=== PATIENT | male | born 1970 | race African-American/Black ===

== ENCOUNTER 2016-03-31 00:55 | Inpatient (IN) | payer MEDICAID, OTHER ==
[2016-03-31] VITALS (11 sets, daily range): BP systolic 113–160; BP diastolic 54–89; PULSE 59–85; RESP 16–20; TEMP 96.2–99; O2SAT 93–98
[~2016-03-31] VITALS: Ht 182.9 cm; Wt 85.0 kg
[~2016-03-31 00:55] MED LIST: IBUP400T20 PO; Z.0.NO CURRENT MEDS
--- NOTE | 2016-03-31 01:29 | PD ---
HPI Chief Complaint: Chest Pain Time Seen by Provider: 01:09 Travel History International Travel<30 days: No Contact w/Intl Traveler<30days: No Traveled to known affect area: No History of Present Illness HPI 48-year-old male arrives following about 12 hours of chest pain which started after he is not diabetic. He spent most of the day lying around and relaxing. 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 About 3 hours prior to ER arrival the pain became quite a bit worse. The location is retrosternal and epigastric. EMS was activated and the patient received nitroglycerin sublingual as well as a baby aspirin. In the ER he states his pain is a 7/10. It's worse was 10 over 10. Quality pressure. No radiation to the arm neck etc. He denies any family history of early onset coronary artery disease. He has no personal history of diabetes hypertension or hyperlipidemia. He does smoke. The pain is worse with inspiration. His notes diaphoresis at home. About 1 hour prior to ER arrival the patient took a Lortab and Flexeril which has not helped much. [facility] Past Medical History Medical History: Denies Significant Hx Diminished Hearing: No Social History Alcohol Use: Yes (DAILY 1-2 DRINKS) Tobacco Use: Yes (1 PPD) Substance Use: No Allergies-Medications (Allergen,Severity, Reaction): Coded Allergies: No Known Allergies (Verified , 03/31/16) Reported Meds & Prescriptions Reported Meds & Active Scripts Active No Active Prescriptions or Reported Medications Review of Systems Except as stated in HPI: all other systems reviewed are Neg Physical Exam Narrative GENERAL: 45-year-old male well-nourished well-developed SKIN: Warm and dry. HEAD: Atraumatic. Normocephalic. EYES: Pupils equal and round. No scleral icterus. No injection or drainage. ENT: No nasal bleeding or discharge. Mucous membranes pink and moist. NECK: Trachea midline. No JVD. CARDIOVASCULAR: Regular rate and rhythm. No murmur appreciated. RESPIRATORY: No accessory muscle use. Clear to auscultation. Breath sounds equal bilaterally. GASTROINTESTINAL: Abdomen soft, non-tender, nondistended. Hepatic and splenic margins not palpable. MUSCULOSKELETAL: No obvious deformities. No clubbing. No cyanosis. No edema. NEUROLOGICAL: Awake and alert. No obvious cranial nerve deficits. Motor grossly within normal limits. Normal speech. PSYCHIATRIC: Appropriate mood and affect; insight and judgment normal. Data Data Last Documented VS Vital Signs Date Time Temp Pulse Resp B/P Pulse Ox O2 Delivery O2 Flow Rate FiO2 03/31/16 01:09 65 18 93 Room Air 03/31/16 01:04 97.5 142/89 Orders Electrocardiogram (03/31/16 01:20) Ckmb (Isoenzyme) Profile (03/31/16 01:20) Complete Blood Count With Diff (03/31/16 01:20) Comprehensive Metabolic Panel (03/31/16 01:20) Magnesium (Mg) (03/31/16 01:20) Prothrombin Time / Inr (Pt) (03/31/16 01:20) Act Partial Throm Time (Ptt) (03/31/16 01:20) Troponin I (03/31/16 01:20) Lipase (03/31/16 01:20) Chest, Single Ap (03/31/16 01:20) Ecg Monitoring (03/31/16 01:20) Iv Access Insert/Monitor (03/31/16 01:20) Oximetry (03/31/16 01:20) Oxygen Administration (03/31/16 01:20) Sodium Chloride 0.9% Flush (Ns Flush) (03/31/16 01:30) Lactic Acid (03/31/16 01:20) Blood Culture (03/31/16 01:20) Morphine Inj (Morphine Inj) (03/31/16 01:30) Nitroglycerin 2% Oint (Nitroglycerin 2% (03/31/16 01:30) CKMB (03/31/16 01:20) CKMB% (03/31/16 01:20) Ceftriaxone Inj (Rocephin Inj) (03/31/16 02:45) Azithromycin Inj (Zithromax Inj) (03/31/16 02:45) B-Type Natriuretic Peptide (03/31/16 03:09) Ct Thorax/ Chest Wo Iv Contras (03/31/16 ) Place In Observation (03/31/16 ) Vital Signs (Adult) Q4H (03/31/16 03:09) Activity Oob With Assistance (03/31/16 03:09) Pencil Inspector / Telemetry .CONTINUOUS (03/31/16 03:09) Diet Heart Healthy (03/31/16 Breakfast) Sodium Chloride 0.9% Flush (Ns Flush) (03/31/16 03:15) Sodium Chloride 0.9% Flush (Ns Flush) (03/31/16 09:00) Basic Metabolic Panel (Bmp) (04/01/16 06:00) Complete Blood Count With Diff (04/01/16 06:00) Creatine Kinase (Cpk) (03/31/16 07:21) Creatine Kinase (Cpk) (03/31/16 13:21) Troponin I (03/31/16 07:20) Troponin I (03/31/16 13:20) Enoxaparin Inj (Lovenox Inj) (03/31/16 09:00) Naloxone Inj (Narcan Inj) (03/31/16 03:15) Admit Order (Ed Use Only) (03/31/16 03:10) Labs Laboratory Tests Test 03/31/16 01:20 White Blood Count 13.5 TH/MM3 Red Blood Count 4.51 MIL/MM3 Hemoglobin 13.6 GM/DL Hematocrit 39.6 % Mean Corpuscular Volume 87.8 FL Mean Corpuscular Hemoglobin 30.2 PG Mean Corpuscular Hemoglobin 34.4 % Concent Red Cell Distribution Width 15.1 % Platelet Count 224 TH/MM3 Mean Platelet Volume 7.3 FL Neutrophils (%) (Auto) 53.7 % Lymphocytes (%) (Auto) 38.1 % Monocytes (%) (Auto) 6.8 % Eosinophils (%) (Auto) 0.9 % Basophils (%) (Auto) 0.5 % Neutrophils # (Auto) 7.2 TH/MM3 Lymphocytes # (Auto) 5.1 TH/MM3 Monocytes # (Auto) 0.9 TH/MM3 Eosinophils # (Auto) 0.1 TH/MM3 Basophils # (Auto) 0.1 TH/MM3 CBC Comment DIFF FINAL Differential Comment Prothrombin Time 10.7 SEC Prothromb Time International 1.0 RATIO Ratio Activated Partial 23.5 SEC Thromboplast Time Sodium Level 140 MEQ/L Potassium Level 3.6 MEQ/L Chloride Level 107 MEQ/L Carbon Dioxide Level 27.0 MEQ/L Anion Gap 6 MEQ/L Blood Urea Nitrogen 11 MG/DL Creatinine 1.19 MG/DL Estimat Glomerular Filtration 79 ML/MIN Rate Random Glucose 151 MG/DL Lactic Acid Level 2.2 mmol/L Calcium Level 7.8 MG/DL Magnesium Level 1.7 MG/DL Total Bilirubin 0.3 MG/DL Aspartate Amino Transf 12 U/L (AST/SGOT) Alanine Aminotransferase 13 U/L (ALT/SGPT) Alkaline Phosphatase 77 U/L Total Creatine Kinase 104 U/L Creatine Kinase MB LESS THAN 0.5 NG/ML Troponin I LESS THAN 0.02 NG/ML Total Protein 7.2 GM/DL Albumin 2.9 GM/DL Lipase 168 U/L [facility] Medical Decision Making Medical Screen Exam Complete: Yes Emergency Medical Condition: Yes Medical Record Reviewed: Yes Differential Diagnosis NSTEMI, unstable angina, coronary vasospasm, PE, PTX, aortic dissection, pericarditis, myocarditis, endocarditis, PNA, esophageal disease, aneurysm, musculoskeletal etiologies, anxiety, cocaine/sympathomimetic abuse Narrative Course Tn < 0.02 CBC & BMP Diagram 03/31/16 01:20 LA 2.2 LFTs normal Lipase 168 Tn < 0.02 EKG: sinus, rate 54, probable early repolarization ST elevations Last 24 hours Impressions Chest X-Ray 03/31/16 0120 Signed Impressions: Service Date/Time: March 01:30 - CONCLUSION: Bilateral, basilar predominant infiltrates suggesting pulmonary edema and/or pneumonia. Jair Hightower MD Admission for iv abx and monitoring. d/w Dr Segal Sepsis Criteria SIRS Criteria (2 or more): RR > 20 or PaCO2 < 32, WBC > 03772, < 4000 or > 10 % bands Diagnosis Primary Impression: PNA (pneumonia) Qualified Code: J18.9 - Pneumonia of both lungs due to infectious organism, unspecified part of lung Additional Impression: Chest pain Qualified Code: R07.9 - Chest pain, unspecified type Admitting Information Admitting Physician Requests: Observation Scripts No Active Prescriptions or Reported Meds Bassem Bermudez MD Mar 31, 2016 01:29
[2016-03-31] MEDS ORDERED: MORPHINE SULFATE 8 MG/ML INJ IV PUSH ONE (01:30)
[2016-03-31] MEDS ORDERED: NITROGLYCERIN 2% OINT 1 GM PACKET TOP ONE (01:30)
[2016-03-31] MEDS ORDERED: SODIUM CHLORIDE 0.9% FLUSH 5 ML FLUSH IVF PRN (01:30)
[2016-03-31 01:35] LABS: AUTOMATED NEUTROPHIL # 7.2 TH/MM3 (1.8-7.7); BASOPHIL # 0.1 TH/MM3 (0-0.2); BASOPHIL % 0.5 % (0.0-2.0); EOSINOPHIL # 0.1 TH/MM3 (0-0.4); EOSINOPHIL % 0.9 % (0.0-4.0); HEMATOCRIT 39.6 % (39.0-51.0); HEMO FLAGS DIFF FINAL; LYMPH % 38.1 % (9.0-44.0); LYMPHOCYTE # 5.1 TH/MM3 (1.0-4.8); MEAN CELL VOLUME 87.8 FL (80.0-100.0); MEAN CORPUSCULAR HEMOGLOBIN 30.2 PG (27.0-34.0); MEAN CORPUSCULAR HGB CONC 34.4 % (32.0-36.0); MONO % 6.8 % (0.0-8.0); NEUT % 53.7 % (16.0-70.0); PLATELET COUNT 224 TH/MM3 (150-450); RED BLOOD COUNT 4.51 MIL/MM3 (4.50-5.90); RED CELL DISTRIBUTION WIDTH 15.1 % (11.6-17.2); WHITE BLOOD COUNT 13.5 TH/MM3 (4.0-11.0)
[2016-03-31 01:43] LABS: APTT (PATIENT) 23.5 SEC (24.3-30.1); PROTHROMBIN TIME - PATIENT 10.7 SEC (9.8-11.6)
[2016-03-31 02:05] LABS: ALT (GPT) 13 U/L (12-78); ANION GAP 6 MEQ/L (5-15); AST (GOT) 12 U/L (15-37); BLOOD UREA NITROGEN 11 MG/DL (7-18); CHLORIDE 107 MEQ/L (98-107); GLOMERULAR FILTRATION RATE 79 ML/MIN (>89); MAGNESIUM 1.7 MG/DL (1.5-2.5); POTASSIUM 3.6 MEQ/L (3.5-5.1); SODIUM (NA) 140 MEQ/L (136-145)
[2016-03-31 02:09] LABS: ALKALINE PHOSPHATASE 77 U/L (45-117); CREATINE KINASE 104 U/L (39-308); TOTAL BILIRUBIN ADULT 0.3 MG/DL (0.2-1.0)
[2016-03-31 02:22] LABS: CKMB LESS THAN 0.5 NG/ML (0.5-3.6)
--- NOTE | 2016-03-31 02:39 | RADRPT ---
EXAM DATE/TIME: 03/31/2016 01:30 [facility] COMPARISON: No previous studies available for comparison. INDICATIONS : Shortness of breath. MEDICAL HISTORY : None. SURGICAL HISTORY : None. ENCOUNTER: Initial ACUITY: 1 day PAIN SCORE: 0/10 LOCATION: Bilateral chest FINDINGS: Mild basilar predominant and primarily interstitial opacities are seen of both lungs suggesting pulmo nary edema and/or atypical pneumonia. No effusion demonstrated. Heart size is normal. There is no pne umothorax. CONCLUSION: Bilateral, basilar predominant infiltrates suggesting pulmonary edema and/or pneumonia. Jair Hightower MD on March 31, 2016 at 2:36 Board Certified Radiologist. This report was verified electronically.
[2016-03-31] MEDS ORDERED: cefTRIAXone INJ 1,000 MG in SODIUM CHLORIDE 0.9% INJ 100 ML IV ONE (02:45)
[2016-03-31] MEDS ORDERED: AZITHROMYCIN INJ 500 MG in SODIUM CHLOR 0.9% 250 ML INJ 250 ML IV ONE (02:45)
[2016-03-31] MEDS ORDERED: SODIUM CHLORIDE 0.9% FLUSH 5 ML FLUSH FLUSH PRN (03:15)
[2016-03-31] MEDS ORDERED: NALOXONE HCL 0.4 MG/ML AMP IV PRN (03:15)
--- NOTE | 2016-03-31 03:49 | HHI.HP ---
[facility] Service [facility] Primary Care Physician No Primary Care Physician Admission Diagnosis PNA, CP Diagnoses: Chief Complaint: chest pain Travel History International Travel<30 Days: No Contact w/Intl Traveler <30 Da: No Traveled to Known Affected Are: No History of Present Illness 45 y/o male with no medical history presented to the ED with complaints of chest pain and chills. Patient states he was eating a hot dog around lunch time and he began to have chest pain, with shortness of breath when he was taking deep breaths. He denies any radiation to his arm or jaw. No associated symptoms such as nausea or vomiting. He states as the day went on the chest pain continued to get worse. He states he began to have chills shortly after the pain began. No known fevers. He denies being around anyone that is sick. Review of Systems Constitutional: COMPLAINS OF: Chills, DENIES: Fever Respiratory: COMPLAINS OF: Cough, Shortness of breath, DENIES: Sputum production Cardiovascular: COMPLAINS OF: Chest pain, DENIES: Palpitations, Lower Extremity Edema Gastrointestinal: DENIES: Constipation, Diarrhea, Nausea, Vomiting Genitourinary: DENIES: Hematuria, Dysuria Musculoskeletal: DENIES: Back pain, Neck pain Integumentary: DENIES: Rash Hematologic/lymphatic: DENIES: Lymphadenopathy Immunologic/allergic: DENIES: Urticaria Neurologic: DENIES: Headache Past Family Social History Past Medical History Patient denies any medical history Past Surgical History ACL repair Reported Medications Reported Meds & Active Scripts Active No Active Prescriptions or Reported Medications Allergies: Coded Allergies: No Known Allergies (Verified , 03/31/16) Active Ordered Medications Current Medications Medications (Trade) Dose Ordered Sig/Ignacio Route Start Time Stop Time Status Last Admin (NS Flush) 2 ml UNSCH PRN FLUSH 03/31/16 03:15 (NS Flush) 2 ml BID FLUSH 03/31/16 09:00 (Lovenox Inj) 40 mg Q24H SQ 03/31/16 09:00 (Narcan Inj) 0.4 mg UNSCH PRN IV 03/31/16 03:15 Family History Patient is unsure about medical history, he was adopted. Social History Tobacco use: 1 ppd Alcohol use: 3-4 shots of liquor a day Illicit drug use: denies Physical Exam Vital Signs Vital Signs Date Time Temp Pulse Resp B/P Pulse Ox O2 Delivery O2 Flow Rate FiO2 03/31/16 01:09 65 18 93 Room Air 03/31/16 01:04 97.5 85 18 142/89 93 Physical Exam GENERAL: This is a well-nourished, well-developed patient, in no apparent distress. SKIN: No rashes, ecchymoses or lesions. Cool and dry. HEAD: Atraumatic. Normocephalic. EYES: Pupils equal round and reactive. ENT: Nose without bleeding, purulent drainage or septal hematoma. Airway patent. NECK: Trachea midline. No JVD CARDIOVASCULAR: Regular rate and rhythm without murmurs, gallops, or rubs. RESPIRATORY: Clear to auscultation. Diminished breath sounds at bases. No wheezes, rales, or rhonchi. Persistent cough GASTROINTESTINAL: Abdomen soft, non-tender, nondistended. No guarding. MUSCULOSKELETAL: Extremities without clubbing, cyanosis, or edema. No joint tenderness, effusion, or edema noted. No calf tenderness. NEUROLOGICAL: Awake and alert. Motor and sensory grossly within normal limits. Normal speech. Laboratory Laboratory Tests Test 03/31/16 01:20 White Blood Count 13.5 Red Blood Count 4.51 Hemoglobin 13.6 Hematocrit 39.6 Mean Corpuscular Volume 87.8 Mean Corpuscular Hemoglobin 30.2 Mean Corpuscular Hemoglobin 34.4 Concent Red Cell Distribution Width 15.1 Platelet Count 224 Mean Platelet Volume 7.3 Neutrophils (%) (Auto) 53.7 Lymphocytes (%) (Auto) 38.1 Monocytes (%) (Auto) 6.8 Eosinophils (%) (Auto) 0.9 Basophils (%) (Auto) 0.5 Neutrophils # (Auto) 7.2 Lymphocytes # (Auto) 5.1 Monocytes # (Auto) 0.9 Eosinophils # (Auto) 0.1 Basophils # (Auto) 0.1 CBC Comment DIFF FINAL Differential Comment Prothrombin Time 10.7 Prothromb Time International 1.0 Ratio Activated Partial 23.5 Thromboplast Time Sodium Level 140 Potassium Level 3.6 Chloride Level 107 Carbon Dioxide Level 27.0 Anion Gap 6 Blood Urea Nitrogen 11 Creatinine 1.19 Estimat Glomerular Filtration 79 Rate Random Glucose 151 Lactic Acid Level 2.2 Calcium Level 7.8 Magnesium Level 1.7 Total Bilirubin 0.3 Aspartate Amino Transf 12 (AST/SGOT) Alanine Aminotransferase 13 (ALT/SGPT) Alkaline Phosphatase 77 Total Creatine Kinase 104 Creatine Kinase MB LESS THAN 0.5 Troponin I LESS THAN 0.02 Total Protein 7.2 Albumin 2.9 Lipase 168 Date/Time Procedure Status Source Growth 03/31/16 01:25 Aerobic Blood Culture Received Blood Peripheral Pending 03/31/16 01:25 Anaerobic Blood Culture Received Blood Peripheral Pending Result Diagram: 03/31/16 0120 03/31/16 0120 Imaging Last Impressions Chest X-Ray 03/31/16119 Signed Impressions: Service Date/Time: March 01:30 - CONCLUSION: Bilateral, basilar predominant infiltrates suggesting pulmonary edema and/or pneumonia. Jair Hightower MD Chest CT 03/31/16 0000 Signed Impressions: Service Date/Time: March 03:57 - CONCLUSION: Bibasilar consolidation and severe emphysema. Jair Hightower MD Last Impressions Chest X-Ray 03/31/16119 Signed Impressions: Service Date/Time: March 01:30 - CONCLUSION: Bilateral, basilar predominant infiltrates suggesting pulmonary edema and/or pneumonia. Jair Hightower MD Assessment and Plan Problem List: (1) Chest pain ICD Code: R07.9 Status: Acute (2) PNA (pneumonia) ICD Code: J18.9 Status: Acute (3) Tobacco abuse ICD Code: Z72.0 Status: Acute Assessment and Plan 45 y/o male with no medical history presented with: Chest pain EKG shows slow repolarization Troponin .02 -Serial troponin -Monitor tele Pneumonia Images: Chest xray shows Bilateral basilar predominant infiltrates suggesting pulmonary edema and/or pneumonia. Chest CT shows Bibasilar consolidation and severe emphysema. -Levofloxacin and azithromycin IV Tobacco use, chronic -encouraged to quit DVT prophylaxis: lovenox Written by Yael BOWEN, acting as scribe for Dr. Segal on 03/31/16 at 0455. All or portions of this note were transcribed by scribe [Yael Mcpherson]. I, Dr. Telma Segal personally performed the history, physical exam, and medical decision making; and confirmed the accuracy of the information in the transcribed note. Authenticated by Dr. Telma Segal on 03/31/16 at 0455 Discussed Condition With Patient and RN Physician Certification 2 Midnight Certification Type: Admission for Inpatient Services Order for Inpatient Services The services are ordered in accordance with Medicare regulations or non- Medicare payer requirements, as applicable. In the case of services not specified as inpatient-only, they are appropriately provided as inpatient services in accordance with the 2-midnight benchmark. Estimated LOS (days): 3 days is the estimated time the patient will need to remain in the hospital, assuming treatment plan goals are met and no additional complications. Post-Hospital Plan: Home Problem Qualifiers (1) Chest pain: Qualified Code: R07.9 - Chest pain, unspecified type (2) PNA (pneumonia): Qualified Code: J18.9 - Pneumonia of both lungs due to infectious organism, unspecified part of lung Yael Mcpherson Mar 31, 2016 03:49 Telma Segal MD May 04, 2016 08:07
--- NOTE | 2016-03-31 04:12 | RADRPT ---
EXAM DATE/TIME: 03/31/2016 03:57 [facility] COMPARISON: CHEST SINGLE AP, March 31, 2016, 1:30. INDICATIONS : Chest pain. RADIATION DOSE: 3.61 CTDIvol (mGy) MEDICAL HISTORY : None SURGICAL HISTORY : None. ENCOUNTER: Initial ACUITY: 1 day PAIN SCALE: 10/10 LOCATION: Bilateral chest TECHNIQUE: Volumetric scanning of the chest was performed. Using automated exposure control and adjustment of t he mA and/or kV according to patient size, radiation dose was kept as low as reasonably achievable to obtain optimal diagnostic quality images. FINDINGS: There is lower lobe predominant consolidation of both lung bases. There is severe upper lobe emphysem a. No pleural effusion. No pneumothorax. No mediastinal lymphadenopathy demonstrated. No definite adenopathy. Heart size normal. There is bruce nary artery calcification, most conspicuous of the left anterior descending. CONCLUSION: Bibasilar consolidation and severe emphysema. Jair Hightower MD on March 31, 2016 at 4:08 Board Certified Radiologist. This report was verified electronically.
[2016-03-31] MEDS: LEVOFLOXACIN 750 MG PREMIX INJ 150 ML IV SCH (06:39)
[2016-03-31] MEDS ORDERED: ACETAMINOPHEN/HYDROcodone 325 MG/5 MG TAB PO PRN (08:00)
[2016-03-31] MEDS ORDERED: MORPHINE SULFATE 4 MG/ML INJ IV PRN (08:00)
[2016-03-31] MEDS ORDERED: ACETAMINOPHEN/HYDROcodone 325 MG/7.5 MG TAB PO PRN (08:00)
[2016-03-31] MEDS ORDERED: ACETAMINOPHEN 325 MG TAB PO PRN (08:00)
[2016-03-31] MEDS ORDERED: ONDANSETRON HCL 4 MG/2 ML VIAL IVP PRN (08:00)
[2016-03-31] MEDS ORDERED: DOCUSATE SODIUM 100 MG CAP PO PRN (08:00)
[2016-03-31] MEDS ORDERED: RESP: ALBUTEROL 2.5 MG/IPRATROPIUM 0.5 MG NEB (PRN) NEB (08:00)
[2016-03-31] MEDS ORDERED: MAGNESIUM HYDROXIDE SUSP 30 ML CUP PO PRN (08:00)
[2016-03-31] MEDS ORDERED: ASPIRIN 81 MG CHEW TAB CHEW ONE (08:00)
[2016-03-31 08:08] LABS: I-STAT POTASSIUM 4.1 MMOL/L (3.5-4.9); I-STAT SODIUM 139 MMOL/L (138-146)
[2016-03-31 08:31] LABS: CREATINE KINASE 104 U/L (39-308)
--- NOTE | 2016-03-31 08:43 | PD.CARD ---
Cardiology Procedure Note Procedure Name: STAT Echo Procedure Date: Mar 31, 2016 Procedure Note: Called for possible STEMI on Brendon. EKG has some ST elevations but no reciprocal ST depressions. LA has some mild depressions, and mild elevation in AVR. STAT Echo shows relatively normal inferior wall motion. Repeat EKG with ST elevations throughout. [place] to be pericarditis. Patient currently resting comfortably with no chest pain. Please see dictated consult of the rest of his information. Jose G Bermudez DO Mar 31, 2016 08:42
--- NOTE | 2016-03-31 08:49 | MB ---
cc: JOSE G VELAZQUEZ DO DATE OF CONSULTATION: March 31, 2016 REASON FOR CONSULTATION Possible STEMI. HISTORY OF PRESENT ILLNESS Brendon Garcia is a pleasant 45-year-old male who presented to [facility] Emergency Room on March 31, 2016 with a complaint of chest pain and chills. He states he was eating a hotdog around lunch time and he began having some chest pain and shortness of breath. Pain seemed to increase with deep breaths. On arrival to the emergency room EKG was done which showed no real significant ST-T wave changes. This morning he had a repeat EKG and there was some concern for ST elevations and I was called emergently to see him. In speaking to him he states that his pain is somewhat better. It is somewhere between a stabbing and pressure. It does hurt more with a deep breath. He does feel somewhat better leaning forward. He denies any current fevers. PAST MEDICAL HISTORY Denies. PAST SURGICAL HISTORY ACL repair. ALLERGIES NO KNOWN DRUG ALLERGIES. MEDICATIONS Denies. FAMILY HISTORY Unsure as he was adopted. SOCIAL HISTORY Smokes one-pack of cigarettes a day. Drinks three to four shots of liquor a day. Denies illicit drug abuse. REVIEW OF SYSTEMS 14 systems were reviewed including osteopathic, pertinent positives and negatives as above, otherwise negative. PHYSICAL EXAMINATION VITAL SIGNS: Temperature 97.5, heart rate 60, blood pressure 113/75, respirations 20, pulse ox 98% on 3 liters. GENERAL: The patient appears well, in no acute distress, alert, awake and oriented x3. HEENT: Extraocular muscles intact. Mucous membranes moist. NECK: Neck is supple. No JVD at 45 degrees. No carotid bruits heard bilaterally. Carotid upstroke is brisk in nature. HEART: Heart is regular rate and rhythm. Positive first and second heart sounds with no murmurs, gallops or rubs. PMI does not appear displaced. LUNGS: Lungs have decreased breath sounds bilaterally with mild rhonchi. ABDOMEN: Abdomen is soft, nontender, nondistended. No organomegaly noted. EXTREMITIES: Show no clubbing, cyanosis or edema. Femoral and distal pulses intact bilaterally. NEUROLOGIC: No focal deficits. SKIN: Warm, dry and intact. OSTEOPATHIC: No kyphoscoliosis, lordosis or paraspinal tender points. LABORATORY FINDINGS White blood cells 13.5, hemoglobin 13.6, hematocrit 39.6, platelets 224. Potassium 3.6, BUN 11, creatinine 1.19, lactic acid 2.2, troponin 0.02. BNP 12. IMAGING STUDIES Chest CT (March 31, 2016) bibasilar consolidation with severe emphysema. ELECTROCARDIOGRAM Electrocardiogram (March 31, 2016 at 0739) sinus rhythm at 62 beats per minute, ST elevations inferior anterior laterally with mild MI depression throughout, mild elevation of MI and AVR. IMPRESSION 1. ST elevations on EKG concerning for an ST elevation myocardial infarction but with changes more likely to be pericarditis. 2. Bilateral pneumonia. 3. Leukocytosis. 4. Tobacco abuse. RECOMMENDATIONS 1. Mr. Garcia's story is somewhat in-between coronary insufficiency and pericarditis. His EKG leads me more towards pericarditis. Will check a stat 2-D echo to look at his overall left ventricular function and wall motion. 2. He presented with bibasilar infiltrates concerning for edema versus pneumonia. With a current BNP at 12 and his current picture I would more likely suggest that this was pneumonia and that he will be treated with antibiotics per the primary team. 3. Will check another EKG to rule out any significant changes compared to the previous EKG, to see if any evolution of STEMI vs continual pericarditis picture. 4. Further recommendations will be made after STAT echo. Thank you for allowing me to see Brendon Garcia. If there are any questions please do not hesitate to call. Jose G Velazquez DO VGP/TLL /8:08 AM /8:34 AM [facility]
--- NOTE | 2016-03-31 08:58 | PD ---
Data Data Last Documented VS Vital Signs Date Time Temp Pulse Resp B/P Pulse Ox O2 Delivery O2 Flow Rate FiO2 03/31/16 01:09 65 18 93 Room Air 03/31/16 01:04 97.5 142/89 Orders Electrocardiogram (03/31/16 01:20) Ckmb (Isoenzyme) Profile (03/31/16 01:20) Complete Blood Count With Diff (03/31/16 01:20) Comprehensive Metabolic Panel (03/31/16 01:20) Magnesium (Mg) (03/31/16 01:20) Prothrombin Time / Inr (Pt) (03/31/16 01:20) Act Partial Throm Time (Ptt) (03/31/16 01:20) Troponin I (03/31/16 01:20) Lipase (03/31/16 01:20) Chest, Single Ap (03/31/16 01:20) Ecg Monitoring (03/31/16 01:20) Iv Access Insert/Monitor (03/31/16 01:20) Oximetry (03/31/16 01:20) Oxygen Administration (03/31/16 01:20) Sodium Chloride 0.9% Flush (Ns Flush) (03/31/16 01:30) Lactic Acid (03/31/16 01:20) Blood Culture (03/31/16 01:20) Morphine Inj (Morphine Inj) (03/31/16 01:30) Nitroglycerin 2% Oint (Nitroglycerin 2% (03/31/16 01:30) CKMB (03/31/16 01:20) CKMB% (03/31/16 01:20) Ceftriaxone Inj (Rocephin Inj) (03/31/16 02:45) Azithromycin Inj (Zithromax Inj) (03/31/16 02:45) B-Type Natriuretic Peptide (03/31/16 03:09) Ct Thorax/ Chest Wo Iv Contras (03/31/16 ) Place In Observation (03/31/16 ) Vital Signs (Adult) Q4H (03/31/16 03:09) Activity Oob With Assistance (03/31/16 03:09) Cargo Services Coordinator / Telemetry .CONTINUOUS (03/31/16 03:09) Diet Heart Healthy (03/31/16 Breakfast) Sodium Chloride 0.9% Flush (Ns Flush) (03/31/16 03:15) Sodium Chloride 0.9% Flush (Ns Flush) (03/31/16 09:00) Basic Metabolic Panel (Bmp) (04/01/16 06:00) Complete Blood Count With Diff (04/01/16 06:00) Creatine Kinase (Cpk) (03/31/16 07:21) Creatine Kinase (Cpk) (03/31/16 13:21) Troponin I (03/31/16 07:20) Troponin I (03/31/16 13:20) Enoxaparin Inj (Lovenox Inj) (03/31/16 09:00) Naloxone Inj (Narcan Inj) (03/31/16 03:15) Admit Order (Ed Use Only) (03/31/16 03:10) I-Stat Creatinine (03/31/16 07:41) I-Stat Profile (03/31/16 07:41) Labs Laboratory Tests Test 03/31/16 01:20 White Blood Count 13.5 TH/MM3 Red Blood Count 4.51 MIL/MM3 Hemoglobin 13.6 GM/DL Hematocrit 39.6 % Mean Corpuscular Volume 87.8 FL Mean Corpuscular Hemoglobin 30.2 PG Mean Corpuscular Hemoglobin 34.4 % Concent Red Cell Distribution Width 15.1 % Platelet Count 224 TH/MM3 Mean Platelet Volume 7.3 FL Neutrophils (%) (Auto) 53.7 % Lymphocytes (%) (Auto) 38.1 % Monocytes (%) (Auto) 6.8 % Eosinophils (%) (Auto) 0.9 % Basophils (%) (Auto) 0.5 % Neutrophils # (Auto) 7.2 TH/MM3 Lymphocytes # (Auto) 5.1 TH/MM3 Monocytes # (Auto) 0.9 TH/MM3 Eosinophils # (Auto) 0.1 TH/MM3 Basophils # (Auto) 0.1 TH/MM3 CBC Comment DIFF FINAL Differential Comment Prothrombin Time 10.7 SEC Prothromb Time International 1.0 RATIO Ratio Activated Partial 23.5 SEC Thromboplast Time Sodium Level 140 MEQ/L Potassium Level 3.6 MEQ/L Chloride Level 107 MEQ/L Carbon Dioxide Level 27.0 MEQ/L Anion Gap 6 MEQ/L Blood Urea Nitrogen 11 MG/DL Creatinine 1.19 MG/DL Estimat Glomerular Filtration 79 ML/MIN Rate Random Glucose 151 MG/DL Lactic Acid Level 2.2 mmol/L Calcium Level 7.8 MG/DL Magnesium Level 1.7 MG/DL Total Bilirubin 0.3 MG/DL Aspartate Amino Transf 12 U/L (AST/SGOT) Alanine Aminotransferase 13 U/L (ALT/SGPT) Alkaline Phosphatase 77 U/L Total Creatine Kinase 104 U/L Creatine Kinase MB LESS THAN 0.5 NG/ML Troponin I LESS THAN 0.02 NG/ML B-Type Natriuretic Peptide 12 PG/ML Total Protein 7.2 GM/DL Albumin 2.9 GM/DL Lipase 168 U/L MDM Supervised Visit with JUSTUS: No Narrative Course I was approached by the nurses to review an EKG for this patient in which he had ST elevations in the inferior and lateral leads which are new from prior EKG. I went in to speak to the patient he reports that he had just gotten up to the bathroom and he had been doing fine prior to then but then he developed chest pain. He says the chest pain is still present. I called a STEMI alert given the presence of ST elevation, active chest pain and new EKG findings. Dr. Bermudez, special education aide, immediately came down to evaluate the patient. He suspected pericarditis given RI segment depression and diffuse nature of ST elevation on EKG. A stat echo was obtained which was reassuring. Dr. Bermudez plans to continue to follow the patient but doesn't think he requires urgent cardiac catheterization. Diagnosis Primary Impression: PNA (pneumonia) Qualified Code: J18.9 - Pneumonia of both lungs due to infectious organism, unspecified part of lung Additional Impression: Chest pain Qualified Code: R07.9 - Chest pain, unspecified type Scripts No Active Prescriptions or Reported Meds Kendy Pierce MD Mar 31, 2016 08:58
[2016-03-31] MEDS: ENOXAPARIN SODIUM 40 MG/0.4 ML SYRINGE SQ SCH (09:00)
[2016-03-31] MEDS: SODIUM CHLORIDE 0.9% FLUSH 5 ML FLUSH FLUSH SCH ×2 (09:18→22:47)
[2016-03-31] MEDS: IBUPROFEN 600 MG TAB PO SCH (10:35)
--- NOTE | 2016-03-31 11:10 | HHI.PR ---
Subjective Remarks Follow up for bilateral pneumonia, chest pain, SOB. The patient reports feeling slightly better today. Denies any current chest pain or shortness of breath. He has continued cough productive of brown-weinberg sputum. Chills overnight but no fevers. Denies any recent congestion/sore throat. Objective Vitals Vital Signs Date Time Temp Pulse Resp B/P Pulse Ox O2 Delivery O2 Flow Rate FiO2 03/31/16 09:00 99.0 71 18 122/54 97 Room Air 03/31/16 08:00 59 20 113/75 98 Nasal Cannula 3 03/31/16 07:46 97 Nasal Cannula 3 03/31/16 07:00 60 18 121/76 98 Nasal Cannula 2 03/31/16 06:37 65 18 116/64 94 Room Air 03/31/16 01:09 65 18 93 Room Air 03/31/16 01:04 97.5 85 18 142/89 93 I/O 03/30/16 03/30/16 03/30/16 03/31/16 03/31/16 03/31/16 07:00 15:00 23:00 07:00 15:00 23:00 Intake Total 120 ml Balance 120 ml Intake Oral 120 ml Result Diagram: 03/31/16 0120 03/31/16 0120 Imaging Last Impressions Chest X-Ray 03/31/16 0120 Signed Impressions: Service Date/Time: March 01:30 - CONCLUSION: Bilateral, basilar predominant infiltrates suggesting pulmonary edema and/or pneumonia. Jair Hightower MD Chest CT 03/31/16 0000 Signed Impressions: Service Date/Time: March 03:57 - CONCLUSION: Bibasilar consolidation and severe emphysema. Jair Hightower MD Objective Remarks GENERAL: Well-nourished, well-developed middle aged male patient in [facility]. SKIN: Warm and dry. No rash. HEAD: Normocephalic. Atraumatic. EYES: Pupils equal and round. No scleral icterus. No injection or drainage. ENT: No nasal bleeding or discharge. Mucous membranes pink and moist. NECK: Supple. Trachea midline. CARDIOVASCULAR: Regular rate and rhythm. S1, S2 noted. No murmur appreciated. RESPIRATORY: No accessory muscle use. Bronchial sounds left lower lung field and decreased breath sounds RLL. GASTROINTESTINAL: Abdomen soft, non-tender, nondistended. Normoactive bowel sounds x4. MUSCULOSKELETAL: No obvious deformities. Extremities without clubbing, cyanosis , or edema. NEUROLOGICAL: Awake and alert. No obvious cranial nerve deficits. Motor grossly within normal limits. Normal speech. PSYCHIATRIC: Appropriate mood and affect; insight and judgment normal. Medications and IVs Current Medications Medications (Trade) Dose Ordered Sig/Ignacio Route Start Time Stop Time Status Last Admin (NS Flush) 2 ml UNSCH PRN FLUSH 03/31/16 03:15 (NS Flush) 2 ml BID FLUSH 03/31/16 09:00 03/31/16 09:18 (Lovenox Inj) 40 mg Q24H SQ 03/31/16 09:00 Naloxone HCl 0.4 mg 0.4 mg UNSCH PRN IV 03/31/16 03:15 (Levaquin 750 Mg Premix Inj) 150 ml @ 100 mls/hr Q24H IV 03/31/16 06:00 03/31/16 06:39 (Zofran Inj) 4 mg Q6H PRN IVP 03/31/16 08:00 03/31/16 09:26 (Colace) 100 mg Q12H PRN PO 03/31/16 08:00 (Milk Of Magnesia Liq) 30 ml Q12H PRN PO 03/31/16 08:00 (Tylenol) 650 mg Q6H PRN PO 03/31/16 08:00 ([place] 5-325 Mg) 1 tab Q4H PRN PO 03/31/16 08:00 ([place] 7.5-325 Mg) 1 tab Q4H PRN PO 03/31/16 08:00 (Morphine Inj) 2 mg Q4H PRN IV 03/31/16 08:00 03/31/16 09:26 (Motrin) 600 mg Q8H PO 03/31/16 10:00 03/31/16 10:35 (Protonix) 40 mg DAILY PO 03/31/16 11:15 03/31/16 11:28 Urinary Catheter: No Vascular Central Line Catheter: No A/P Problem List: (1) Chest pain ICD Code: R07.9 Status: Acute (2) PNA (pneumonia) ICD Code: J18.9 Status: Acute (3) Tobacco abuse ICD Code: Z72.0 Status: Acute Assessment and Plan 45-year-old male with hx of tobacco use and alcohol use, presents with chest pains, cough, shortness of breath, and chills Bilateral Community-Acquired Pneumonia: Chest CT images reviewed by me, showed bibasilar consolidation and severe emphysema. WBC 13.5K, afebrile. S/p IV Rocephin/Azithro in the ER, will continue with IV Levaquin. Acute Pericarditis: EKG with ST elevations at inferior/anterior/lateral leads with mild ID depression, more consistent with pericarditis. Echocardiogram showed mild LVH, normal systolic function, mild MR, mild ID. Cardiology consulted, started the patient on ibuprofen 60mmg q8h ignacio. Monitor for improvement. Abnormal EKG: EKG with diffuse ST elevations as mentioned above. Suspect secondary to pericarditis. Troponins negative x3. Repeat EKG in the am. Pleuritic Chest Pain: secondary to pneumonia as above in combination with suspected pericarditis. ACS ruled out with negative serial cardiac enzymes x3. Continue ibuprofen. Tessalon and Robitussin prn cough. Pain control with norco prn and IV morphine prn breakthrough pain. Tobacco Use: counseled on cessation. Avoid nicotine patch due to vasoconstriction. Alcohol Use: counseled on cessation. CIWA protocol. Thiamine/folate/MV. DVT Prophylaxis: teds/SCDs Written by Gabbie Ferguson, acting as scribe for Dr. Thomson on 03/31/16 at 11: 08. Attending Statement The documentation accurately reflects the work performed [id number] by me on at 11:08. Problem Qualifiers (1) Chest pain: Qualified Code: R07.9 - Chest pain, unspecified type (2) PNA (pneumonia): Qualified Code: J18.9 - Pneumonia of both lungs due to infectious organism, unspecified part of lung Gabbie Ferguson PA-C Mar 31, 2016 11:09 Delonte Brady MD Apr 05, 2016 13:18
[2016-03-31] MEDS: PANTOPRAZOLE SOD 40 MG DELAYED RELEASE TAB PO SCH (11:28)
--- NOTE | 2016-03-31 12:33 | EC ---
Study Study Date:03/31/2016 STUDY CONCLUSIONS SUMMARY - Left ventricle: The cavity size was normal. Wall thickness was increased in a pattern of mild LVH. Systolic function was normal. The estimated ejection fraction was in the range of 55% to 60%. - Mitral valve: Mild regurgitation. - Pulmonic valve: Mild regurgitation. - Pulmonary arteries: PA peak pressure: 47mm Hg (S). If LV function is below 40, please consider prescribing an ACEI or ARB or document rationale for non-use. PROCEDURE DATA STUDY STATUS: Elective. Procedure: Transthoracic echocardiography. Image quality was good. Scanning was performed from the parasternal, apical, and subcostal acoustic windows. Study completion: The patient tolerated the procedure well. Transthoracic echocardiography. M-mode, complete 2D, complete spectral Doppler, and color Doppler. Patient status: Inpatient. CARDIAC ANATOMY LEFT VENTRICLE: The cavity size was normal. Wall thickness was increased in a pattern of mild LVH. Systolic function was normal. The estimated ejection fraction was in the range of 55% to 60%. AORTIC VALVE: Structurally normal valve. Doppler: There was no stenosis. No regurgitation. MITRAL VALVE: The valve appears to be grossly normal. Doppler: There was no evidence for stenosis. Mild regurgitation. LEFT ATRIUM: The atrium was normal in size. RIGHT VENTRICLE: The cavity size was normal. Systolic function was normal. PULMONIC VALVE: The valve appears to be grossly normal. Doppler: There was no evidence for stenosis. Mild regurgitation. TRICUSPID VALVE: The valve appears to be grossly normal. Doppler: There was no evidence for stenosis. Trace to mild regurgitation. PERICARDIUM: There was no pericardial effusion. BASIC MEASUREMENTS ADULT Normal Left ventricle LV internal dimension, ED, chordal level, *35.7 mm 43-52 PLAX LV internal dimension, ES, chordal level, 27.2 mm 23-38 PLAX Fractional shortening, chordal level, PLAX *24 % >29 LV posterior wall thickness, ED 11.9 mm IVS/LVPW ratio, ED 1.19 <1.3 Ventricular septum Septal thickness, ED 14.2 mm Aortic valve Leaflet separation 23 mm 15-26 Right ventricle RV internal dimension, ED, PLAX 28.4 mm 19-38 BASIC MEASUREMENTS ADULT Normal Aortic valve Leaflet separation 23 mm 15-26 Aorta Root diameter, ED 32 mm 20-37 Left atrium Anterior-posterior dimension, ES 36 mm 19-40 LA/aortic root ratio 1.13 DOPPLER MEASUREMENTS ADULT Normal Main pulmonary artery Pressure, S *47 mm Hg =30 Tricuspid valve Regurgitant peak velocity 304 cm/s Peak RV-RA gradient, S 37 mm Hg Maximal regurgitant velocity 304 cm/s Systemic veins Estimated CVP 10 mm Hg Right ventricle RV pressure, S *47 mm Hg <30 LEGEND: Mean values are shown as u=mean value. Asterisk (*) le values outside specified normal range. Prepared and signed by Jose G Bermudez [id number]
[2016-03-31 14:02] LABS: CREATINE KINASE 107 U/L (39-308)
[2016-03-31] MEDS ORDERED: guaiFENesin/DEXTROMETHORPHAN 200 MG/20 MG/10 ML CUP PO PRN (16:30)
[2016-03-31] MEDS ORDERED: LORazepam 2 MG TAB PO PRN (16:30)
[2016-03-31] MEDS ORDERED: FLUMAZENIL 0.5 MG/5 ML VIAL IV PUSH PRN (16:30)
[2016-03-31] MEDS ORDERED: LORazepam 2 MG/ML VIAL IV PUSH PRN ×4 (16:30)
[2016-03-31] MEDS ORDERED: LORazepam 1 MG TAB PO PRN (16:30)
[2016-03-31] MEDS ORDERED: BENZONATATE 100 MG CAP PO PRN (16:30)
[2016-03-31] MEDS: MULTIVITAMINS/MINERALS THERAPEUTIC TAB PO SCH (17:29)
[2016-03-31] MEDS: FOLIC ACID 1 MG TAB PO SCH (17:29)
[2016-03-31] MEDS: THIAMINE HCL 100 MG TAB PO SCH (17:29)
[2016-04-01] MEDS: IBUPROFEN 600 MG TAB PO SCH ×2 (02:00→09:23)
[2016-04-01] MEDS ORDERED: AZITHROMYCIN INJ 500 MG in SODIUM CHLOR 0.9% 250 ML INJ 250 ML IV SCH (04:00)
[2016-04-01 04:25] VITALS: BP 150/78; PULSE 88; RESP 18; TEMP 97.8; O2SAT 97
[2016-04-01] MEDS: LEVOFLOXACIN 750 MG PREMIX INJ 150 ML IV SCH (05:44)
--- NOTE | 2016-04-01 06:49 | EKG ---
Date Performed: 03/31/2016 Time Performed: 08:28:18 PTAGE: 45 years EKG: SINUS BRADYCARDIA Early repolarization pattern INTERPRETATION BASED ON A DEFAULT AGE OF 40 YEARS PREVIOUS TRACING : 03/31/2016 01.33 Compared to prior tracing no significant change DOCTOR: Jabari Whitlock Interpretating Date/Time 04/01/2016 06:46:29
--- NOTE | 2016-04-01 06:50 | EKG ---
Date Performed: 03/31/2016 Time Performed: 07:39:50 PTAGE: 45 years EKG: Sinus rhythm EARLY REPOLARIZATION BORDERLINE ECG NO PREVIOUS TRACING DOCTOR: Jabari Whitlock Interpretating Date/Time 04/01/2016 06:47:15
--- NOTE | 2016-04-01 06:55 | EKG ---
Date Performed: 03/31/2016 Time Performed: 01:33:09 PTAGE: 45 years EKG: SINUS BRADYCARDIA ST ELEVATION, PROBABLY EARLY REPOLARIZATION BORDERLINE ECG PREVIOUS TRACING : 03/31/2016 01.03 Compared to prior tracing no significant change DOCTOR: Jabari Whitlock Interpretating Date/Time 04/01/2016 06:53:42
--- NOTE | 2016-04-01 06:56 | EKG ---
Date Performed: 03/31/2016 Time Performed: 01:03:09 PTAGE: 45 years EKG: Sinus rhythm NORMAL ECG NO PREVIOUS TRACING DOCTOR: Jabari Whitlock Interpretating Date/Time 04/01/2016 06:53:56
[2016-04-01 07:42] LABS: AUTOMATED NEUTROPHIL # 4.8 TH/MM3 (1.8-7.7); BASOPHIL % 0.3 % (0.0-2.0); EOSINOPHIL # 0.1 TH/MM3 (0-0.4); EOSINOPHIL % 0.7 % (0.0-4.0); HEMATOCRIT 42.2 % (39.0-51.0); HEMO FLAGS DIFF FINAL; LYMPHOCYTE # 3.1 TH/MM3 (1.0-4.8); MEAN CORPUSCULAR HEMOGLOBIN 30.2 PG (27.0-34.0); MEAN CORPUSCULAR HGB CONC 34.3 % (32.0-36.0); MONO % 9.9 % (0.0-8.0); NEUT % 54.1 % (16.0-70.0); PLATELET COUNT 217 TH/MM3 (150-450); RED BLOOD COUNT 4.79 MIL/MM3 (4.50-5.90); WHITE BLOOD COUNT 8.9 TH/MM3 (4.0-11.0)
[2016-04-01 08:29] VITALS: BP 125/89; PULSE 67; RESP 18; TEMP 98.4; O2SAT 96
[2016-04-01 08:29] LABS: BICARBONATE 25.1 MEQ/L (21.0-32.0); POTASSIUM 3.7 MEQ/L (3.5-5.1)
[2016-04-01] MEDS: ENOXAPARIN SODIUM 40 MG/0.4 ML SYRINGE SQ SCH (09:00)
[2016-04-01] MEDS: FOLIC ACID 1 MG TAB PO SCH (09:23)
[2016-04-01] MEDS: THIAMINE HCL 100 MG TAB PO SCH (09:23)
[2016-04-01] MEDS: PANTOPRAZOLE SOD 40 MG DELAYED RELEASE TAB PO SCH (09:23)
[2016-04-01] MEDS: MULTIVITAMINS/MINERALS THERAPEUTIC TAB PO SCH (09:23)
[2016-04-01] MEDS: SODIUM CHLORIDE 0.9% FLUSH 5 ML FLUSH FLUSH SCH (09:24)
--- NOTE | 2016-04-01 10:54 | PD.CARD.PN ---
Subjective Subjective Remarks No chest pain, no shortness of breath Objective Medications Current Medications Medications (Trade) Dose Ordered Sig/Ignacio Route Start Time Stop Time Status Last Admin (NS Flush) 2 ml UNSCH PRN FLUSH 03/31/16 03:15 (NS Flush) 2 ml BID FLUSH 03/31/16 09:00 04/01/16 09:24 (Lovenox Inj) 40 mg Q24H SQ 03/31/16 09:00 Naloxone HCl 0.4 mg 0.4 mg UNSCH PRN IV 03/31/16 03:15 (Levaquin 750 Mg Premix Inj) 150 ml @ 100 mls/hr Q24H IV 03/31/16 06:00 04/01/16 05:44 (Zofran Inj) 4 mg Q6H PRN IVP 03/31/16 08:00 03/31/16 09:26 (Colace) 100 mg Q12H PRN PO 03/31/16 08:00 (Milk Of Magnesia Liq) 30 ml Q12H PRN PO 03/31/16 08:00 (Tylenol) 650 mg Q6H PRN PO 03/31/16 08:00 ([place] 5-325 Mg) 1 tab Q4H PRN PO 03/31/16 08:00 ([place] 7.5-325 Mg) 1 tab Q4H PRN PO 03/31/16 08:00 03/31/16 22:47 (Morphine Inj) 2 mg Q4H PRN IV 03/31/16 08:00 03/31/16 09:26 (Motrin) 600 mg Q8H PO 03/31/16 10:00 04/01/16 09:23 (Protonix) 40 mg DAILY PO 03/31/16 11:15 04/01/16 09:23 (Robitussin Dm 200-20 Mg/10 ml Liq) 10 ml Q4H PRN PO 03/31/16 16:30 (Tessalon) 200 mg Q8H PRN PO 03/31/16 16:30 (Folate) 1 mg DAILY PO 03/31/16 16:30 04/05/16 16:29 04/01/16 09:23 (Vitamin B1) 100 mg DAILY PO 03/31/16 16:30 04/01/16 09:23 (Theragran M Tab) 1 tab DAILY PO 03/31/16 16:30 04/05/16 16:29 04/01/16 09:23 (Romazicon Inj) 0.2 mg Q1M PRN IV PUSH 03/31/16 16:30 (Ativan) 1 mg Q4H PRN PO 03/31/16 16:30 (Ativan Inj) 1 mg Q4H PRN IV PUSH 03/31/16 16:30 (Ativan) 2 mg Q2H PRN PO 03/31/16 16:30 (Ativan Inj) 2 mg Q2H PRN IV PUSH 03/31/16 16:30 (Ativan Inj) 2 mg Q1H PRN IV PUSH 03/31/16 16:30 (Ativan Inj) 2 mg Q15M PRN IV PUSH 03/31/16 16:30 Vital Signs / I&O Vital Signs Date Time Temp Pulse Resp B/P Pulse Ox O2 Delivery O2 Flow Rate FiO2 04/01/16 08:29 98.4 67 18 125/89 96 04/01/16 04:25 97.8 88 18 150/78 97 03/31/16 23:50 12 03/31/16 20:30 96.2 68 18 160/85 94 03/31/16 20:00 61 03/31/16 19:33 62 16 154/87 94 Room Air 03/31/16 16:00 60 16 115/70 96 03/31/16 11:56 16 03/31/16 11:00 60 16 115/72 98 Room Air I/O 03/31/16 03/31/16 03/31/16 04/01/16 04/01/16 04/01/16 07:00 15:00 23:00 07:00 15:00 23:00 Intake Total 120 ml Balance 120 ml Intake Oral 120 ml Physical Exam GENERAL: Nad, AAox3 SKIN: Warm and dry. HEAD: Atraumatic. Normocephalic. EYES: Pupils equal and round. No scleral icterus. No injection or drainage. ENT: No nasal bleeding or discharge. Mucous membranes pink and moist. NECK: Trachea midline. No JVD. CARDIOVASCULAR: Regular rate and rhythm. RESPIRATORY: No accessory muscle use. Clear to auscultation. Breath sounds equal bilaterally. GASTROINTESTINAL: Abdomen soft, non-tender, nondistended. Hepatic and splenic margins not palpable. MUSCULOSKELETAL: Extremities without clubbing, cyanosis, or edema. No obvious deformities. NEUROLOGICAL: Awake and alert. No obvious cranial nerve deficits. Motor grossly within normal limits. Five out of 5 muscle strength in the arms and legs. Normal speech. PSYCHIATRIC: Appropriate mood and affect; insight and judgment normal. Laboratory Laboratory Tests Test 03/31/16 04/01/16 13:21 06:30 Total Creatine Kinase 107 U/L Troponin I LESS THAN 0.02 NG/ML White Blood Count 8.9 TH/MM3 Red Blood Count 4.79 MIL/MM3 Hemoglobin 14.4 GM/DL Hematocrit 42.2 % Mean Corpuscular Volume 88.0 FL Mean Corpuscular Hemoglobin 30.2 PG Mean Corpuscular Hemoglobin 34.3 % Concent Red Cell Distribution Width 15.0 % Platelet Count 217 TH/MM3 Mean Platelet Volume 7.6 FL Neutrophils (%) (Auto) 54.1 % Lymphocytes (%) (Auto) 35.0 % Monocytes (%) (Auto) 9.9 % Eosinophils (%) (Auto) 0.7 % Basophils (%) (Auto) 0.3 % Neutrophils # (Auto) 4.8 TH/MM3 Lymphocytes # (Auto) 3.1 TH/MM3 Monocytes # (Auto) 0.9 TH/MM3 Eosinophils # (Auto) 0.1 TH/MM3 Basophils # (Auto) 0.0 TH/MM3 CBC Comment DIFF FINAL Differential Comment Sodium Level 138 MEQ/L Potassium Level 3.7 MEQ/L Chloride Level 106 MEQ/L Carbon Dioxide Level 25.1 MEQ/L Anion Gap 7 MEQ/L Blood Urea Nitrogen 10 MG/DL Creatinine 1.02 MG/DL Estimat Glomerular Filtration 95 ML/MIN Rate Random Glucose 95 MG/DL Calcium Level 8.9 MG/DL Assessment and Plan Problem List: (1) Pericarditis (2) Chest pain (3) Tobacco abuse (4) PNA (pneumonia) Assessment and Plan 1) Pericarditis, continue Ibuprofen TID for a week, then BID for a week 2) B/L PNA per the primary 3) Will see PRN, call with questions Problem Qualifiers (1) Chest pain: Qualified Code: R07.9 - Chest pain, unspecified type (2) PNA (pneumonia): Qualified Code: J18.9 - Pneumonia of both lungs due to infectious organism, unspecified part of lung Jose G Bermudez DO Apr 01, 2016 10:54
--- NOTE | 2016-04-01 12:59 | HHI.PR ---
Subjective Remarks Follow up for bilateral pneumonia, pericarditis. The patient reports his chest pain has resolved. Denies any shortness of breath or cough. No fevers/chills overnight. He wants to go home. Cleared by cardiology. Objective Vitals Vital Signs Date Time Temp Pulse Resp B/P Pulse Ox O2 Delivery O2 Flow Rate FiO2 04/01/16 08:29 98.4 67 18 125/89 96 04/01/16 04:25 97.8 88 18 150/78 97 03/31/16 23:50 12 03/31/16 20:30 96.2 68 18 160/85 94 03/31/16 20:00 61 03/31/16 19:33 62 16 154/87 94 Room Air 03/31/16 16:00 60 16 115/70 96 I/O 03/31/16 03/31/16 03/31/16 04/01/16 04/01/16 04/01/16 07:00 15:00 23:00 07:00 15:00 23:00 Intake Total 120 ml Balance 120 ml Intake Oral 120 ml Result Diagram: 04/01/16 0630 04/01/16 0630 Imaging Last Impressions Chest X-Ray 03/31/16 0120 Signed Impressions: Service Date/Time: March 01:30 - CONCLUSION: Bilateral, basilar predominant infiltrates suggesting pulmonary edema and/or pneumonia. Jair Hightower MD Chest CT 03/31/16 0000 Signed Impressions: Service Date/Time: March 03:57 - CONCLUSION: Bibasilar consolidation and severe emphysema. Jair Hightower MD Objective Remarks GENERAL: Well-nourished, well-developed middle aged male patient in [facility]. SKIN: Warm and dry. No rash. HEAD: Normocephalic. Atraumatic. NECK: Supple. Trachea midline. CARDIOVASCULAR: Regular rate and rhythm. S1, S2 noted. No murmur appreciated. RESPIRATORY: No accessory muscle use. Clear to auscultation. Breath sounds equal bilaterally. GASTROINTESTINAL: Abdomen soft, non-tender, nondistended. Normoactive bowel sounds x4. MUSCULOSKELETAL: No obvious deformities. Extremities without clubbing, cyanosis , or edema. NEUROLOGICAL: Awake and alert. No obvious cranial nerve deficits. Motor grossly within normal limits. Normal speech. PSYCHIATRIC: Appropriate mood and affect; insight and judgment normal. Urinary Catheter: No Vascular Central Line Catheter: No A/P Problem List: (1) Chest pain ICD Code: R07.9 Status: Acute (2) PNA (pneumonia) ICD Code: J18.9 Status: Acute (3) Tobacco abuse ICD Code: Z72.0 Status: Acute Assessment and Plan 45-year-old male with hx of tobacco use and alcohol use, presents with chest pains, cough, shortness of breath, and chills Bilateral Community-Acquired Pneumonia: Chest CT images reviewed by me, showed bibasilar consolidation and severe emphysema. WBC 13.5K, afebrile. S/p IV Rocephin/Azithro in the ER, will continue with IV Levaquin. D/c on po Levaquin. Acute Pericarditis: EKG with ST elevations at inferior/anterior/lateral leads with mild ND depression, more consistent with pericarditis. Echocardiogram showed mild LVH, normal systolic function, mild MR, mild ND. Cardiology consulted, started the patient on ibuprofen 60mmg q8h nehemias. No further chest pains. Cleared for d/c by cardiology. Abnormal EKG: EKG with diffuse ST elevations as mentioned above. Suspect secondary to pericarditis. Troponins negative x3. Cleared for d/c by cardiology. Pleuritic Chest Pain: secondary to pneumonia as above in combination with pericarditis. ACS ruled out with negative serial cardiac enzymes x3. Continue ibuprofen. Tessalon and Robitussin prn cough. Pain control with norco prn and IV morphine prn breakthrough pain. Pains resolved. Tobacco Use: counseled on cessation. Avoid nicotine patch due to vasoconstriction. Alcohol Use: counseled on cessation. [facility] protocol. Thiamine/folate/MV. DVT Prophylaxis: teds/SCDs Written by Gabbie Ferguson, acting as scribe for Dr. Thomson on 04/01/16 at 12: 57. Discharge Planning Discharge patient to home Condition on discharge: Improved Heart Healthy Diet as tolerated Ad Miriam activity Rx written: Levaquin 750mg po qd x7days, Ibuprofen 600mg tid x1 week then 600mg bid x1 week Follow-up with primary care physician within 1 week Attending Statement The documentation accurately reflects the work performed [id number] by me on at 12:57. Problem Qualifiers (1) Chest pain: Qualified Code: R07.9 - Chest pain, unspecified type (2) PNA (pneumonia): Qualified Code: J18.9 - Pneumonia of both lungs due to infectious organism, unspecified part of lung Gabbie Ferguson PA-C Apr 01, 2016 12:59 Delonte Brady MD Apr 05, 2016 13:54
[2016-04-01] MEDS ORDERED: IBUP-232 PO (13:22)
[2016-04-01] MEDS ORDERED: LEVA750T PO (13:22)
--- NOTE | 2016-04-01 13:23 | HHI.DCPOC ---
Discharge Care Plan Diagnosis: (1) Pericarditis (2) PNA (pneumonia) (3) Chest pain Goals to Promote Your Health * To prevent worsening of your condition and complications * To maintain your health at the optimal level Directions to Meet Your Goals Take your medications as prescribed Follow your dietary instruction Follow activity as directed Keep your appointments as scheduled Take your immunizations and boosters as scheduled If your symptoms worsen call your PCP, if no PCP go to Urgent Care Center or Emergency Room Smoking is Dangerous to Your Health. Avoid second hand smoke Call the 24-hour hour crisis hotline for domestic abuse at Gabbie Ferguson PA-C Apr 01, 2016 13:23
== END 2016-04-01 14:29 | disposition home or self-care (01) | DRG 314 ==
LOC: NEPE 00:55 → OBSVTOIN 03:14 → INTOOBSV 03:14 → NEDA 03:14 → NEPHCDU 20:14
PROVIDERS: ADMIT Hospitalist; ATTEND Hospitalist
DX: I30.9 Acute pericarditis, unspecified (principal); J18.9 Pneumonia, unspecified organism; J43.9 Emphysema, unspecified; F17.210 Nicotine dependence, cigarettes, uncomplicated
CPT/HCPCS: 71010; 71250; 80048; 80053; 82435; 82550; 82552; 82565; 82947; 83605; 83690; 83735; 83880; 84132; 84295; 84484; 84520; 85025; 85610; 85730; 87040; 93005; 93306; 96374; 96375; J0456; J0696; J1956; J2270; J2405; J7050

== ENCOUNTER 2017-07-26 18:38 | Emergency (ER) | payer MEDICAID, OTHER ==
[~2017-07-26] VITALS: Ht 182.9 cm; Wt 71.3 kg
[~2017-07-26 18:38] MED LIST changes: +IBUP-232 PO; -IBUP400T20 PO; +LEVA750T PO; -Z.0.NO CURRENT MEDS
[2017-07-26 18:41] VITALS: BP 114/73; PULSE 64; RESP 18; TEMP 98.7; O2SAT 97
[2017-07-26] MEDS ORDERED: NYSTCRE29 TOPICAL (19:17)
--- NOTE | 2017-07-26 19:45 | PD ---
HPI . Rash Chief Complaint: Skin Problem Time Seen by Provider: 19:11 Travel History International Travel<30 days: No Contact w/Intl Traveler<30days: No Traveled to known affect area: No History of Present Illness HPI This patient presents with chief complaint of a rash. He states that it started about a month and a half ago in the groin. He has treated it with several different qkaj-ice-mzcayvt preparations including khre-ddo-tcjclsl " jock itch" medicine and hydrocortisone cream. He states that he will get brief relief of his symptoms with this treatment. However, the symptoms have persisted and are "spreading" and getting worse. He denies any drainage from the rash. The rash is pruritic. It has spread from the groin to the posterior neck. He has not noted any modifying factors. He does state that it seems to be worse at night. PFSH Past Medical History Asthma: No Blood Disorders: No Heart Rhythm Problems: No Cancer: No Cardiovascular Problems: No High Cholesterol: No Chemotherapy: No Chest Pain: No Congestive Heart Failure: No COPD: No Diabetes: No Diminished Hearing: No Endocrine: No Genitourinary: No Immune Disorder: No Musculoskeletal: No Neurologic: No Psychiatric: No Reproductive: No Respiratory: No Radiation Therapy: No Sleep Apnea: No Thyroid Disease: No Tetanus Vaccination: Unknown Influenza Vaccination: No ?: Not Social History Alcohol Use: Yes (DAILY 1-2 DRINKS) Tobacco Use: Yes (1 PPD) Substance Use: No Allergies-Medications (Allergen,Severity, Reaction): Coded Allergies: No Known Allergies (Verified Adverse Reaction, Unknown, 07/26/17) Reported Meds & Prescriptions Reported Meds & Active Scripts Active Nystatin-Triamcinolone 100,000-0.1 Unit/Gm Cream 1 Applic TOPICAL BID Levaquin (Levofloxacin) 750 Mg Tab 750 Mg PO DAILY Ibuprofen 600 Mg Tab 600 Mg PO Q8H Take 600mg three times a day for 1 week, Then take 600mg twice a day for 1 week. Review of Systems Except as stated in HPI: all other systems reviewed are Neg Physical Exam Narrative GENERAL: Awake and alert and in no acute distress. SKIN: Warm and dry. Patient has darkened, thickened skin in the groin bilaterally. It spreads to the perianal area. He has a couple of similar, scattered lesions on the posterior neck. The borders are irregular. There are some satellite lesions. HEAD: Normocephalic/atraumatic. EYES: Pupils are equal. Extraocular movements are intact. NECK: Normal range of motion. CARDIOVASCULAR: Regular rate and rhythm. RESPIRATORY: Nonlabored respirations. MUSCULOSKELETAL: Atraumatic. NEUROLOGICAL: Nonfocal. PSYCHIATRIC: Appropriate mood and affect. Data Data Last Documented VS Vital Signs Date Time Temp Pulse Resp B/P (MAP) Pulse Ox O2 Delivery O2 Flow Rate FiO2 07/26/17 18:41 98.7 64 18 114/73 (87) 97 Orders Orders Ed Discharge Order (07/26/17 19:18) MDM Medical Decision Making Medical Screen Exam Complete: Yes Emergency Medical Condition: Yes Differential Diagnosis The differential diagnosis of the skin rash includes but is not limited to allergic urticaria, scabies, insect bites, contact dermatitis Narrative Course This patient presents with a rash in the groin which has now spread to the posterior neck. He has treated it appropriately as an outpatient with over-the- counter jock itch medication and topical steroid creams with minimal temporary relief. His exam is compatible with tinea cruris and tinea corporis. Diagnosis Primary Impression: Tinea cruris Additional Impression: Tinea corporis Referrals: Primary Care Physician call for appointment Patient Instructions: General Instructions, Jock Itch (ED), Skin Yeast Infection (ED) Departure Forms: Tests/Procedures Additional Instructions: Keep area as dry and cool as possible. May take Benadryl tablets 2 every 4 hours for itching, especially at night. Scripts Nystatin-Triamcinolone (Nystatin-Triamcinolone) 100,000-0.1 Unit/Gm Cream 1 APPLIC TOPICAL BID for Infection, #60 GM 0 Refills Prov: Odessa Reardon MD 07/26/17 Disposition: 01 DISCHARGE HOME Condition: Stable Odessa Reardon MD July 26, 2017 19:45
== END 2017-07-26 19:27 | disposition home or self-care (01) ==
LOC: PHEFT 18:38
DX: B35.6 Tinea cruris (principal); B35.4 Tinea corporis; F17.200 Nicotine dependence, unspecified, uncomplicated; Z79.899 Other long term (current) drug therapy
CPT/HCPCS: 99282

== ENCOUNTER 2017-07-28 16:16 | Emergency (ER) | payer SELFPAY ==
[~2017-07-28] VITALS: Ht 182.9 cm; Wt 70.0 kg
[~2017-07-28 16:16] MED LIST changes: +NYSTCRE29 TOPICAL
[2017-07-28 16:21] VITALS: BP 154/100; PULSE 80; RESP 18; TEMP 100.2; O2SAT 98
[2017-07-28] MEDS ORDERED: LIDOCAINE HCL 1% PF 30 ML VIAL ONE (16:39)
--- NOTE | 2017-07-28 16:40 | PD ---
Data Data Last Documented VS Vital Signs Date Time Temp Pulse Resp B/P (MAP) Pulse Ox O2 Delivery O2 Flow Rate FiO2 07/28/17 16:21 100.2 80 18 154/100 (118) 98 Orders Orders Lidocaine 1% Inj (50 Ml) (Xylocaine 1% I (07/28/17 16:45) Lidocaine Pf 1% Inj (Xylocaine-Mpf 1% In (07/28/17 16:39) Ed Discharge Order (07/28/17 17:07) MDM Supervised Visit with JUSTUS: Yes Narrative Course I, Dr. Torres, have reviewed the advance practice practitioner's documentation and am in agreement, met with the patient face to face, made the diagnosis, and the medical decision making was done by me. *My assessment and Findings: Patient seen and examined by me in addition to I will suggest this, appears to have small fluid collection on the chin, is coming to ahead just inferior to the chin. Really no induration is no surrounding erythema. Patient is borderline febrile at 100.2, otherwise the vital signs are reassuring. He appears well and nontoxic. Empiric drainage and antibiotics, discussed follow-up with a primary care physician and return to ED criteria. He is stable for discharge Scripts Sulfamethoxazole-Trimethoprim (Bactrim DS) 800-160 Mg Tab 1 TAB PO BID for Infection, #20 TAB 0 Refills Prov: Cooper Torres MD 07/28/17 Disposition: 01 DISCHARGE HOME Condition: Stable Cooper Torres MD Jul 28, 2017 16:40
[2017-07-28] MEDS ORDERED: LIDOCAINE HCL 1% 50 ML VIAL INFIL ONE (16:45)
--- NOTE | 2017-07-28 17:03 | PD ---
HPI Chief Complaint: Skin Problem Time Seen by Provider: 16:29 Travel History International Travel<30 days: No Contact w/Intl Traveler<30days: No Traveled to known affect area: No History of Present Illness HPI 47-year-old male presents emergency department for evaluation of a painful mass in the anterior aspect of his chin that is been present for 2-3 days. Says that the site has become larger and more painful so he decided to come in today for evaluation. He denies shaving the area or other inciting events. He does not know why this developed. He says he has has chills but denies fevers. The pain is mild to moderate, worse with palpation. He is having difficulty opening his mouth because of the pain to his anterior chin. Denies drooling, neck stiffness. PFSH Past Medical History Asthma: No Blood Disorders: No Heart Rhythm Problems: No Cancer: No Cardiovascular Problems: No High Cholesterol: No Chemotherapy: No Chest Pain: No Congestive Heart Failure: No COPD: No Diabetes: No Diminished Hearing: No Endocrine: No Genitourinary: No Hypertension: No Immune Disorder: No Implanted Vascular Access Dvce: No Musculoskeletal: No Neurologic: No Psychiatric: No Reproductive: No Respiratory: No Radiation Therapy: No Sleep Apnea: No Thyroid Disease: No Tetanus Vaccination: < 5 Years Social History Alcohol Use: Yes (DAILY 1-2 DRINKS) Tobacco Use: Yes (1 PPD) Substance Use: No Allergies-Medications (Allergen,Severity, Reaction): Coded Allergies: No Known Allergies (Verified Adverse Reaction, Unknown, 07/28/17) Reported Meds & Prescriptions Reported Meds & Active Scripts Active Bactrim DS (Sulfamethoxazole-Trimethoprim) 800-160 Mg Tab 1 Tab PO BID Nystatin-Triamcinolone 100,000-0.1 Unit/Gm Cream 1 Applic TOPICAL BID Review of Systems Except as stated in HPI: all other systems reviewed are Neg Physical Exam Narrative GENERAL: Well-nourished, well-developed patient, in NAD SKIN: Focused skin assessment warm/dry. No rashes or lesions. Anterior chin- round, fluctuant, mobile mass on anterior chin without extension into surrounding soft tissue. HEAD: Normocephalic. Atraumatic. EYES: No scleral icterus. No injection or drainage. THROAT: Airway is patent. NECK: Supple, trachea midline. No JVD or lymphadenopathy. No meningismus. CARDIOVASCULAR: Regular rate and rhythm without murmurs, gallops, or rubs. RESPIRATORY: Breath sounds equal bilaterally. No accessory muscle use. No wheezes, rales, or rhonchi MUSCULOSKELETAL: No cyanosis, or edema. BACK: Nontender without obvious deformity. No CVA tenderness. Data Data Last Documented VS Vital Signs Date Time Temp Pulse Resp B/P (MAP) Pulse Ox O2 Delivery O2 Flow Rate FiO2 07/28/17 16:21 100.2 80 18 154/100 (118) 98 Orders Orders Lidocaine 1% Inj (50 Ml) (Xylocaine 1% I (07/28/17 16:45) Lidocaine Pf 1% Inj (Xylocaine-Mpf 1% In (07/28/17 16:39) Ed Discharge Order (07/28/17 17:07) [facility] Medical Decision Making Medical Screen Exam Complete: Yes Emergency Medical Condition: Yes Differential Diagnosis Chin abscess, erysipelas, saline Narrative Course 47-year-old male presents emergency department with an abscess to the chin. Vital signs demonstrate temperature 100.2. Patient does not look toxic. Heart rate 80. Blood pressure stable. Abscess was incised and drained. The fluid within the abscess was rather thick and there was difficulty expressing all fluid. I suspect there was a previous sebaceous cyst of sorts that had become infected. The area was packed with iodoform. Advised to leave in place and return in 2 days for wound evaluation. Patient be discharged with Bactrim. Advised that he should follow-up with his primary care physician within 2-3 days. Return to the emergency department for worsening or persistent symptoms. Procedures Procedure Narrative INCISION AND DRAINAGE OF ABSCESS: The area was prepped and was sterilely draped. A subcutaneous wheal of 1 % Xylocaine without epinephrine with a total number 1 mL was used to anesthetize the area properly. A number 11 scalpel was used to make a 5 mm incision the inferior portion fo the abscess to avoid cosmetic complications. The abscess was drained, complex loculations were broken down, and irrigated with normal saline. Quarter inch iodoform packing was placed in the wound. Sterile dressing applied. Patient advised to have packing removed in two days. Diagnosis Primary Impression: Abscess Referrals: [facility] Departure Forms: Tests/Procedures, Work Release Enter return to work date: Jul 30, 2017 Additional Instructions: Follow up with your primary care physician within 2-3 days. Keep area clean and dry for 24 hours. After 24 hours, you may bathe as normal but dry the area thoroughly. You may use xktx-nbk-nwlbsgn triple antibiotic ointments for your injury daily. Change dressings daily. If bleeding starts, apply pressure and elevate the area. If you developed increased redness, swelling, or pain return to the emergency department as this could be a sign of infection. Follow-up in the emergency department in 2 days for wound check. Scripts Sulfamethoxazole-Trimethoprim (Bactrim DS) 800-160 Mg Tab 1 TAB PO BID for Infection, #20 TAB 0 Refills Prov: Cooper Torres MD 07/28/17 Disposition: 01 DISCHARGE HOME Condition: Stable Joellen Flores Jul 28, 2017 17:03
[2017-07-28] MEDS ORDERED: BACT800T5 PO (17:04)
== END 2017-07-28 17:20 | disposition home or self-care (01) ==
LOC: PHEFT 16:16
DX: L02.01 Cutaneous abscess of face (principal)
CPT/HCPCS: 10061